=== PATIENT | female | born 1965 ===

== ENCOUNTER → 2019-01-01 | Outpatient (REF) | payer BC | LOC: M LAB LCGH 15:16 | PROVIDERS: ATTEND Surgery | DX: Z00.00 Encounter for general adult medical examination without abnormal findings (principal) ==

== ENCOUNTER → 2019-10-15 | Outpatient (REF) | payer BC | LOC: M LAB LCGH 11:51 | PROVIDERS: ATTEND Obstetrics & Gynecology | DX: Z12.4 Encounter for screening for malignant neoplasm of cervix (principal) | CPT/HCPCS: 87624; G0123 ==